=== PATIENT | female | born 1980 | race Caucasian/White ===

== ENCOUNTER 2017-11-14 09:45 | Observation (INO) ==
[2017-11-14] MEDS ORDERED: Nitroglycerin 0.4 MG TAB.SUBL SL PRN (10:40)
[2017-11-14] MEDS ORDERED: Aspirin 81 MG TAB.CHEW PO STA (10:40)
--- NOTE | 2017-11-14 10:45 | Emergency Department Note ---
Disposition Clinical Impression: Chest pain Qualifiers: Chest pain type: unspecified Qualified Code(s): R07.9 - Chest pain, unspecified Disposition: Admitted As Inpatient Condition: Good Referrals: Justina Moreno CNP [Primary Care Provider] - Forms: ED Satisfaction Letter Time of Disposition: 12:00 Chest Pain HPI - General Chief Complaint: ED Chest Pain Stated Complaint: chest pain Time Seen by Provider: 11/14/17 09:59 Source: patient Limitations: no limitations Vital Signs Reviewed: Yes Nursing Notes Reviewed: Yes - History of Present Illness HPI Narrative: 36-year-old female history of hypertension and pack per day smoker presents with chest pain. This started around 1500 yesterday while at work. She denies any exertion associated. Describes as a chest pressure in the left chest wall with radiation down the left arm. She denies any diaphoresis, shortness of breath or nausea or vomiting. Every 30 minutes to an hour she feels associated sharp pain. 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 States this is similar to before. She continues to have some chest pressure at this time. Mother is in the room and denies history of cardiac history. She denies any other complaints such as recent illness, fever, cough, abdominal pain. She denies any unilateral swelling, history of blood clots, cancer, hormone use, long-distance travel or hospitalization. Will get a chest pain workup with the D dimer. Aspirin and nitro for the pain. She will likely require admission for further evaluation. Pt complaint: chest pain Severity scale (1-10): 5 - Related Data Home Medications Medication Instructions Recorded Confirmed Cetirizine HCl [Zyrtec] 10 mg PO DAILY 02/22/16 06/15/17 Furosemide [Lasix] 40 mg PO 1-3XD PRN 02/22/16 06/15/17 LORazepam [Ativan] 0.5 mg PO PRN PRN 02/22/16 06/15/17 Metoprolol [Lopressor] 25 mg PO BID 02/22/16 06/15/17 Omeprazole [PriLOSEC] 40 mg PO DAILY 02/22/16 06/15/17 Potassium 99 mg PO DAILY 02/22/16 06/15/17 Gabapentin [Neurontin] 300 mg PO TID 11/19/16 06/15/17 Previous Rx's Medication Instructions Recorded Diphenoxylate/Atropine [Lomotil 1 each PO TID #15 tablet 09/28/17 2.5 mg/0.025 mg] Ondansetron HCl [Zofran] 4 mg PO TID #15 tablet 09/28/17 Allergies Allergy/AdvReac Type Severity Reaction Status Date / Time codeine Allergy Rash Verified 02/24/17 12:10 tramadol [From Ultra] Allergy Itching Verified 01/27/17 17:28 "one of the antibiotics" Allergy Vomiting Uncoded 11/14/17 09:49 All systems ED: reviewed and negative except as stated. Review of Systems: As Per HPI Constitutional: Denies: fever, chills ENT ED: Denies: congestion, dysphagia Cardiovascular: Reports: chest pain. Denies: dyspnea on exertion Respiratory: Denies: cough, dyspnea Gastrointestinal: Denies: abdominal pain, nausea, vomiting Genitourinary: Denies: urgency, dysuria Musculoskeletal: Denies: back pain, neck pain Integumentary: Denies: rash, abrasion, lesions Neurological: Denies: headache Psychiatric: Reports: anxiety. 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 - Social History Smoking Status: Current every day smoker Alcohol use: Reports: occasionally Drug use: Reports: none Physical Exam - General Limitations: no limitations General appearance: alert, in no apparent distress - Head Head exam: atraumatic, normocephalic, normal inspection - Eye Eye exam: Present: normal appearance, PERRL, EOMI - ENT ENT exam: normal exam, normal oropharynx, mucous membranes moist - Neck Neck exam: Present: normal inspection, full ROM, trachea midline - Chest Chest inspection: Present: normal inspection, symmetric chest wall rise, tenderness (Left chest) - Respiratory Respiratory exam: Present: normal lung sounds bilaterally. Absent: respiratory distress, wheezes - Cardiovascular Cardiovascular exam: Present: regular rate, normal rhythm, normal heart sounds - Abdominal Exam Abdominal exam: Present: soft, Non-Tender, normal bowel sounds. Absent: tenderness, distention, guarding, rebound, rigidity - Extremities Exam Extremities exam: Present: normal inspection, full ROM, normal capillary refill. Absent: tenderness, pedal edema, calf tenderness - Back Exam Back exam: Present: normal inspection, full ROM. Absent: tenderness - Neurological Exam Neurological exam: Present: alert, oriented X3 - Psychiatric Psychiatric exam: Present: normal affect, normal mood - Skin Skin exam: Present: warm, dry, intact, normal color. Absent: rash, cyanosis, diaphoresis Course Course Narrative: 36-year-old female obese, pack per day smoker, hypertension presents with chest pain. Ongoing over the last 24 hours. History of same. No prior cardiac workup. No family history of cardiac ischemia. EKG shows old T waves inversion that appears unchanged from prior. On exam she has tenderness to the left chest wall. Currently describes a pressure of 510. Chest pain workup initiated with D dimer. HEART score is 4 pending troponin result. Will likely require admission. Trial of nitro at this time. Aspirin given here. - Reevaluation(s) Reevaluation #1: Pain resolved after one nitro. Troponin 0.01. All other lab values unremarkable. EKG did show T wave inversions are old. D dimer was 200. She does not require CTA of the chess to evaluate for pulmonary embolism at this time. Patient will be admitted for further cardiac evaluation. She is in agreement with this plan. Impression is chest pain rule out acute coronary syndrome. Aspirin has been given. Time: 11:01 - Consultations Consultation #1: Spoke with on-call hospitalist farrukh Arreola to admit for chest pain R/O ACS. No further orders at this time Time: 11:59 Vital Signs Temperature 98.4 F 11/14/17 09:46 Pulse Rate 73 11/14/17 09:46 Respiratory Rate 18 11/14/17 09:46 Blood Pressure 147/97 11/14/17 09:46 O2 Sat by Pulse Oximetry 99 11/14/17 09:46 Temperature 98.4 F 11/14/17 09:46 Pulse Rate 87 11/14/17 10:58 Respiratory Rate 18 11/14/17 10:58 Blood Pressure 133/87 11/14/17 10:58 O2 Sat by Pulse Oximetry 96 11/14/17 10:58 Oxygen Delivery Oxygen Delivery Room Air Chest Pain - MDM Narrative Medical decision making narrative: Patient was discussed with my attending physician who agrees with ED management and final disposition. They independently evaluated the patient. Please refer to their attestation to this encounter for additional information. This note was generated by [employer] voice recognition software and as a result grammatical or spelling errors may occur using this program. - Medical Records Medical records reviewed: Yes I reviewed the patient's medical records. - Lab Data Lab results reviewed: Yes I reviewed the patient's lab results. Result diagrams: 11/14/17 10:40 11/14/17 10:40 Lab Results 11/14/17 11/14/17 11/14/17 Range/Units 10:40 10:40 10:40 WBC 9.9 (4.3-11.1) K/mcL RBC 4.58 (3.82-4.97) M/mcL Hgb 13.9 (11.5-15.4) g/dL Hct 41.7 (35.3-44.9) % MCV 91.0 (83.0-100.0) fL MCH 30.3 (28.0-33.3) pg MCHC 33.3 (31.6-35.5) g/dL RDW 12.6 (11.5-14.5) % Plt Count 255 (140-400) K/mcL MPV 9.3 L (9.4-12.4) fL Immature Gran % 0.4 (0-4) % Seg Neutrophils % 48.1 % Lymphocytes % 41.7 % Monocytes % 7.7 % Eosinophils % 1.5 % Basophils % 0.6 % Neutrophils # 4.7 (1.6-8.9) K/mcL Lymphocytes # 4.1 (0.6-4.6) K/mcL Monocytes # 0.8 (0.0-1.3) K/mcL Eosinophils # 0.2 (0.0-0.6) K/mcL Basophils # 0.1 (0.0-0.2) K/mcL D-Dimer (0-500) ng/mLFEU Sodium 138 (136-145) mEq/L Potassium 4.2 (3.5-4.5) mEq/L Chloride 106 (98-109) mEq/L Carbon Dioxide 24 (19-29) mEq/L BUN 12 (7-20) mg/dL Creatinine 0.75 (0.57-1.11) mg/dL Est GFR ( Amer) > 60 (> 60) Est GFR (Non-Af Amer) > 60 (> 60) BUN/Creatinine Ratio 16 (6-26) Glucose 87 (70-99) mg/dL Calculated Osmolality 285 (280-300) Calcium 9.6 (8.6-10.8) mg/dL Troponin I 0.01 (0-0.03) ng/mL 11/14/17 Range/Units 10:40 WBC (4.3-11.1) K/mcL RBC (3.82-4.97) M/mcL Hgb (11.5-15.4) g/dL Hct (35.3-44.9) % MCV (83.0-100.0) fL MCH (28.0-33.3) pg MCHC (31.6-35.5) g/dL RDW (11.5-14.5) % Plt Count (140-400) K/mcL MPV (9.4-12.4) fL Immature Gran % (0-4) % Seg Neutrophils % % Lymphocytes % % Monocytes % % Eosinophils % % Basophils % % Neutrophils # (1.6-8.9) K/mcL Lymphocytes # (0.6-4.6) K/mcL Monocytes # (0.0-1.3) K/mcL Eosinophils # (0.0-0.6) K/mcL Basophils # (0.0-0.2) K/mcL D-Dimer 234 (0-500) ng/mLFEU Sodium (136-145) mEq/L Potassium (3.5-4.5) mEq/L Chloride (98-109) mEq/L Carbon Dioxide (19-29) mEq/L BUN (7-20) mg/dL Creatinine (0.57-1.11) mg/dL Est GFR ( Amer) (> 60) Est GFR (Non-Af Amer) (> 60) BUN/Creatinine Ratio (6-26) Glucose (70-99) mg/dL Calculated Osmolality (280-300) Calcium (8.6-10.8) mg/dL Troponin I (0-0.03) ng/mL - Radiology Data Radiology results reviewed: Yes I reviewed the patient's radiology results. Chest X-Ray 11/14/17 10:12 IMPRESSION: No acute cardiopulmonary abnormality. D/ / Diallo Carmen MD / Diallo Carmen MD Interpreting Provider: Diallo Carmen MD - EKG Data EKG attestation: Yes I reviewed and interpreted this EKG. EKG results narrative: EKG performed 956 normal sinus rhythm 80 bpm, normal axis, incomplete right bundle branch block, T wave inversions are seen in septal leads V1-V3 that are consistent from a prior EKG performed 06/15/2017 and appear unchanged. No ST elevation. Intervals are within normal limits. No acute ischemic changes. Heart Score - Score History: Moderately Suspicious EKG: Non Specific repolarisation Disturbance Age: Less than 45 Risk Factors: Equal/Greater than 3 risk factor or history of atherosclerotic disease Troponin: Less than normal limit HEART Score Total: 4 Attestation Statement - Attestation Attestation: Patient was seen with resident physician. I reviewed the history, physical, assessment and plan, and agree with the findings. I also personally evaluated this patient and had [id number] time with this patient. 36-year-old female presents to emergency department chief complaint of chest pain. Patient states that she has had intermittent chest pain for some time. She was supposed to have had a stress test while ago, but never followed up to get the test done. She does have a strong family history. She is smoker. She also has hypertension. She says her current pain is 5 out of 10 at been somewhat continuous and a pressure sensation for 2 days radiates to left shoulder. She also gets sharp stabbing sensations on occasion she does not have those at this time. On exam vital signs are stable. ENT is unremarkable. Heart regular rhythm and rate. Lungs clear. Abdomen soft nontender. Extremities no swelling or abnormalities noted. Neurologically intact. ED course nitroglycerin resolved the patient's pain. EKG did not show any acute ischemic changes as compared to prior EKG. Lab workup was done. Because of the patient' s comorbidities and risk factors will admit the patient to the hospital service for chest pain and rule out WA. Hemodynamically she remained stable in the ED. Agree with resident physician assessment and plan.
[2017-11-14 10:50] LABS: Basophils # 0.1 K/mcL (0.0-0.2); Basophils % 0.6 %; Eosinophils # 0.2 K/mcL (0.0-0.6); Eosinophils % 1.5 %; Hematocrit 41.7 % (35.3-44.9); Hemoglobin 13.9 g/dL (11.5-15.4); Immature Granulocytes % 0.4 % (0-4); Lymphocytes # 4.1 K/mcL (0.6-4.6); Lymphocytes % 41.7 %; Mean Corpuscular HGB Conc 33.3 g/dL (31.6-35.5); Mean Corpuscular Hemoglobin 30.3 pg (28.0-33.3); Mean Platelet Volume 9.3 fL (9.4-12.4); Monocytes # 0.8 K/mcL (0.0-1.3); Monocytes % 7.7 %; Neutrophils # 4.7 K/mcL (1.6-8.9); Platelet Count 255 K/mcL (140-400); Red Blood Count 4.58 M/mcL (3.82-4.97); Red Cell Distribution Width 12.6 % (11.5-14.5); Segmented Neutrophils % 48.1 %
[2017-11-14 11:00] LABS: Blood Urea Nitrogen 12 mg/dL (7-20); Calcium 9.6 mg/dL (8.6-10.8); Chloride 106 mEq/L (98-109); Glucose 87 mg/dL (70-99); Osmolality,Calculated 285 (280-300); Potassium 4.2 mEq/L (3.5-4.5); Sodium 138 mEq/L (136-145)
[2017-11-14 11:11] LABS: BUN/Creatinine Ratio 16 (6-26); Carbon Dioxide 24 mEq/L (19-29); eGFR For African Americans > 60 (> 60); eGFR For Non-African Americans > 60 (> 60)
[2017-11-14] MEDS ORDERED: Naloxone 0.4 MG/ML INJ IVP PRN (13:27)
[2017-11-14] MEDS ORDERED: Ondansetron 4 MG/2 ML VIAL IVP PRN (13:27)
--- NOTE | 2017-11-14 13:32 | Internal Med History&Physical ---
<Remy Johnson J - Last Filed: 11/14/17 13:30> Date of Encounter: 11/14/17 Time of Encounter: 13:30 Assessment and Plan (1) ACS (acute coronary syndrome) Current visit: Yes Status: Acute Presented today with left-sided chest pain and radiation to left shoulder. Approximately 3 PM yesterday. No prior history of SD. Cardiac workup. Patient reports similar presentation off and on throughout the last year. No one time was scheduled to have a stress test but did not show to her prior obligations. Prior EKG reveals anterior ischemia with ST depression in V2 and V3. Today's EKG reveals the same thing without any changes. Risk factors include hypertension, a half a pack daily smoker, obesity. PER auscultation heart is RRR, S1, S2 she appears to be in no distress and is hemodynamically stable Obtain TTE Serial troponins Stress test in the morning Consult cardio pending stress results HEENT intermittent night, no caffeine, no nicotine morning dose of beta kimberlyn Continuous telemetry, continuous SPO2 monitoring (2) HTN (hypertension) Current visit: Yes Status: Acute History of hypertension. Currently stable. Restart beta kimberlyn. Continue to monitor Qualifiers: Hypertension type: essential hypertension Qualified Code(s): I10 - Essential (primary) hypertension (3) DVT prophylaxis Current visit: Yes Status: Acute Heparin 5000 units subcutaneous twice a day Internal Medicine - H&P: HPI Chief complaint: ACS rule out Admitted From: Home Plans for Post Hospital Care: Home History of present illness: Ms. Hernandez is a 36 year old female with PMH of hypertension. Presents today with left-sided chest pain radiation to the left shoulder described as pressure with intermittent shooting/stabbing which began yesterday at 3 PM. She reports the sensation lasted approximately 10 minutes. Denies any chest pain at this time, denies any fever, chills, shortness of breath, diaphoresis, admits to some intermittent nausea associated with chest pain.EKG from May [address] depression in V2 and V3. She reports that sometime in the last year she was scheduled to have a stress test after experiencing similar symptoms. However at that time she decided to not complete the stress test due to prior obligations. Today's EKG reveals ST depression in V2 and V3 concerning for anterior ischemia. Workup thus far unremarkable. Due to continued symptoms and prior history is being admitted for further workup and evaluation Past Med Surg Social Fam HX - Past Medical History Medical history: fibromyalgia, hypertension Psychiatric history: anxiety, depression - Past Surgical History Surgical History: cholecystectomy, hysterectomy, other (Tonsillectomy) - Social History Smoking Status: Current every day smoker Packs per day: 1/2 Smokeless Tobacco Status: No Alcohol use: occasionally Drug use: none - Family History Father Hx Family Cardiac Disorders: Yes (Coronary artery disease) Internal Medicine - H&P: Meds Cetirizine HCl [Zyrtec] 10 mg PO DAILY 02/22/16 [History] LORazepam [Ativan] 0.5 mg PO DAILY PRN 02/22/16 [History] Metoprolol [Lopressor] 25 mg PO BID 02/22/16 [History] Omeprazole [PriLOSEC] 40 mg PO DAILY 02/22/16 [History] Albuterol Sulfate [Ventolin Hfa] 2 puff IH Q4-6H PRN 11/14/17 [History] Amitriptyline [Elavil] 50 mg PO HS 11/14/17 [History] Buspirone HCl [Buspar] 5 mg PO BID 11/14/17 [History] DULoxetine [Cymbalta] 30 mg PO BID 11/14/17 [History] Fluticasone Propionate Nasal [Flonase] 1 spr NS DAILY 11/14/17 [History] Furosemide [Lasix] 20 mg PO DAILY 11/14/17 [History] Ibuprofen [Ibuprofen] 800 mg PO TID PRN 11/14/17 [History] Potassium Chloride [Klor-Con Sprinkle] 10 meq PO DAILY 11/14/17 [History] Sertraline [Zoloft] 25 mg PO DAILY 11/14/17 [History] 3 Allergy/AdvReac Type Severity Reaction Status Date / Time codeine Allergy Rash Verified 11/14/17 12:04 tramadol [From Ultram] Allergy Itching Verified 11/14/17 12:04 "one of the antibiotics" Allergy Vomiting Uncoded 11/14/17 09:49 All Systems PM: A 10-system review of systems was performed and is negative for pertinent findings except as documented above in the HPI. - Constitutional Constitutional: no chills, no fever(s), no night sweats - EENT Eyes: no change in vision, no discharge, no pain, no photophobia Ears: no ear discharge, no ear pain, no tinnitus Nose, mouth and throat: no dysphagia, no nasal discharge, no neck pain, no sore throat - Cardiovascular Cardiovascular ROS IM: as per HPI, chest pain, no diaphoresis, no dyspnea, no edema, no irregular heart rhythm, no lightheadedness, no palpitations, no paroxysmal nocturnal dyspnea, no syncope - Respiratory Respiratory: no cough, no dyspnea, no wheezing, no excessive phlegm production - Gastrointestinal Gastrointestinal: nausea (Intermittent associated with chest pain.), no abdominal pain, no diarrhea, no hematemesis, no hematochezia, no melena, no vomiting - Genitourinary Genitourinary: no change in urinary stream, no dysuria, no flank pain, no hematuria - Musculoskeletal Musculoskeletal ROS IM: no numbness, no tingling - Integumentary Integumentary IM: no rash, no unusual bruising - Neurological Neurological ROS: no confusion, no convulsions, no focal weakness, no numbness, no tingling, no tremor(s) - Hematologic/Lymphatic Hematologic/Lymphatic: no easy bruising - Constitutional Vitals: Temp Pulse Resp BP Pulse Ox 97.9 F 72 16 133/89 98 11/14/17 13:01 11/14/17 13:01 11/14/17 13:01 11/14/17 13:01 11/14/17 13:01 General appearance: Present: cooperative, A&O X 3, no acute distress, answers questions appropriately - Head Head exam: Present: atraumatic, normocephalic - Eye Eye exam: Present: PERRL, conjuntiva pink, sclera anicteric Pupils: Present: PERRL - Neck Neck exam general surgery: Present: supple, trachea midline. Absent: lymphadenopathy - Respiratory Respiratory exam: Present: CTAB. Absent: accessory muscle use, rales, rhonchi, wheezes - Cardiovascular Cardiovascular exam: Present: RRR, +S1, +S2. Absent: diastolic murmur, gallop, rubs, systolic murmur - GI/Abdominal GI/Abdominal exam: Present: normal bowel sounds, soft, no peritoneal signs. Absent: distended, tenderness - Extremities Exam Extremities exam: Present: warm, radial pulses palpable and symmetrical. Absent : calf tenderness, cyanotic, pedal edema - Neurological Exam Neurological exam: Present: CN II-XII intact, oriented X3, no focal deficits. Absent: pronater drift, facial droop, speech deficit - Skin Skin exam: Present: dry, intact Internal Med - H&P Results - Labs CBC & Chem 7: 11/14/17 10:40 11/14/17 10:40 - EKG Data -: EKG Interpreted by Myself EKG shows normal: sinus rhythm Rate: normal - EKG Data Prior EKG available for review: yes When compared to previous EKG: there is no significant change Interpretation IM: suggestive of ischemia EKG comments: 11/14/17 13:[address] depression in V2 and V3 concerning for anterior ischemia. Has not changed from prior EKG in 05/2017 <Benoit Kidd - Last Filed: 11/14/17 18:15> Date of Encounter: 11/14/17 Internal Medicine - H&P: HPI History of present illness: Ms. Hernandez is a 36 year old female All Systems PM: A 10-system review of systems was performed and is negative for pertinent findings except as documented above in the HPI. - Constitutional Vitals: Temp Pulse Resp BP Pulse Ox 97.9 F 72 16 133/89 98 11/14/17 13:01 11/14/17 13:01 11/14/17 13:01 11/14/17 13:01 11/14/17 13:01 Internal Med - H&P Results - Labs CBC & Chem 7: 11/14/17 10:40 11/14/17 10:40 - Attending Attestation I examined this patient and my medical decision-making was reviewed with the Resident Physician. I agree with the documented findings, disposition and treatment plan as described except to the extent set forth below.
[2017-11-14] MEDS: *HR* LORazepam 0.5 MG TABLET PO PRN (15:13)
[2017-11-14] MEDS: *HR* Heparin 5,000 UNIT/ML VIAL SQ SCH (17:44)
[2017-11-14] MEDS: Ibuprofen 800 MG TABLET PO PRN (17:59)
[2017-11-15] MEDS: *HR* Heparin 5,000 UNIT/ML VIAL SQ SCH (05:10)
[2017-11-15 07:02] LABS: Basophils # 0.1 K/mcL (0.0-0.2); Basophils % 0.9 %; Eosinophils # 0.2 K/mcL (0.0-0.6); Eosinophils % 1.9 %; Hematocrit 45.6 % (35.3-44.9); Immature Granulocytes % 0.7 % (0-4); Lymphocytes # 3.8 K/mcL (0.6-4.6); Lymphocytes % 42.2 %; Mean Corpuscular HGB Conc 32.9 g/dL (31.6-35.5); Mean Corpuscular Hemoglobin 30.2 pg (28.0-33.3); Mean Corpuscular Volume 91.9 fL (83.0-100.0); Mean Platelet Volume 9.4 fL (9.4-12.4); Monocytes # 0.7 K/mcL (0.0-1.3); Neutrophils # 4.2 K/mcL (1.6-8.9); Platelet Count 261 K/mcL (140-400); Red Blood Count 4.96 M/mcL (3.82-4.97); Red Cell Distribution Width 12.7 % (11.5-14.5); Segmented Neutrophils % 46.3 %
[2017-11-15 07:14] LABS: BUN/Creatinine Ratio 14 (6-26); Blood Urea Nitrogen 11 mg/dL (7-20); Calcium 9.3 mg/dL (8.6-10.8); Carbon Dioxide 27 mEq/L (19-29); Chloride 108 mEq/L (98-109); Glucose 102 mg/dL (70-99); Osmolality,Calculated 292 (280-300); Potassium 4.6 mEq/L (3.5-4.5); Sodium 141 mEq/L (136-145); eGFR For African Americans > 60 (> 60); eGFR For Non-African Americans > 60 (> 60)
[2017-11-15 07:17] LABS: Chol/HDL Ratio 9.6 (0-4.9)
[2017-11-15] MEDS ORDERED: Fluticasone Propionate Nasal 50 MCG/SPRAY BOTTLE NS SCH (09:00)
[2017-11-15] MEDS ORDERED: Loratadine 10 MG TABLET PO SCH (09:00)
[2017-11-15] MEDS ORDERED: Furosemide 20 MG TABLET PO SCH (09:00)
[2017-11-15] MEDS: *HR* LORazepam 0.5 MG TABLET PO PRN (09:48)
--- NOTE | 2017-11-15 13:06 | Discharge Summary ---
Date of Encounter: 11/15/17 Time of Encounter: 13:04 - Discharge Diagnosis (1) Chest pain Priority: Primary Status: Resolved Comments: Patient with chest pain occurred while working. Improved with nitroglycerin, ASA. Serial troponins negative. EKG without acute ST changes. TTE with EF 60% , mild diastolic dysfunction, no wall motion abnormalities. Stress test nondiagnostic for ischemia due to baseline ST changes on EKG. Patient declined further inpatient testing, preferred to follow up outpatient with PCP and cardiology. Chest pain possibly secondary to exertion and musculoskeletal in etiology; patient reports working 2 jobs and over 80 hours a week. No chest pain at time of discharge. Has follow-up with PCP 11/16/17. Advised to return to ER if chest pain, SOB recurs. Qualifiers: Chest pain type: unspecified Qualified Code(s): R07.9 - Chest pain, unspecified (2) Hyperlipidemia Priority: Primary Status: Acute Comments: LDL 146; statin initiated. Lifestyle modifications encouraged. Can repeat lipid profile with PCP. Qualifiers: Hyperlipidemia type: pure hypercholesterolemia Qualified Code(s): E78.00 - Pure hypercholesterolemia, unspecified; E78.0 - Pure hypercholesterolemia (3) HTN (hypertension) Priority: Primary Status: Acute Comments: per hx. . BP controlled. Continue home BP medication Qualifiers: Hypertension type: essential hypertension Qualified Code(s): I10 - Essential (primary) hypertension - Discharge Medications Prescriptions: Atorvastatin [Lipitor] 40 mg PO HS #30 tablet Home Medications: Cetirizine HCl [Zyrtec] 10 mg PO DAILY 02/22/16 [History] LORazepam [Ativan] 0.5 mg PO DAILY PRN 02/22/16 [History] Metoprolol [Lopressor] 25 mg PO BID 02/22/16 [History] Omeprazole [PriLOSEC] 40 mg PO DAILY 02/22/16 [History] Albuterol Sulfate [Ventolin Hfa] 2 puff IH Q4-6H PRN 11/14/17 [History] Amitriptyline [Elavil] 50 mg PO HS 11/14/17 [History] Buspirone HCl [Buspar] 5 mg PO BID 11/14/17 [History] DULoxetine [Cymbalta] 30 mg PO BID 11/14/17 [History] Fluticasone Propionate Nasal [Flonase] 1 spr NS DAILY 11/14/17 [History] Furosemide [Lasix] 20 mg PO DAILY 11/14/17 [History] Ibuprofen 800 mg PO TID PRN 11/14/17 [History] Potassium Chloride [Klor-Con Sprinkle] 10 meq PO DAILY 11/14/17 [History] Sertraline [Zoloft] 25 mg PO DAILY 11/14/17 [History] Atorvastatin [Lipitor] 40 mg PO HS #30 tablet 11/15/17 [Rx] Allergies/Adverse Reactions: 3 Allergy/AdvReac Type Severity Reaction Status Date / Time codeine Allergy Rash Verified 11/14/17 12:04 tramadol [From Ultram] Allergy Itching Verified 11/14/17 12:04 "one of the antibiotics" Allergy Vomiting Uncoded 11/14/17 09:49 Procedures/tests Complete & Pending: Procedures Performed prior 72 hours Category Date Time Status EV echocardiogram Routine Y 11/15/17 13:23 Completed SP exercise stress ECG Routine Y 11/15/17 Completed Date of admission: 11/14/17 12:12 Primary care physician: Justina Moreno CNP Discharging clinician: Shy Pugh Anticipated date of discharge: 11/15/17 - Patient Status Disposition: Home, Self-Care Condition: Good Functional capacity at discharge: independent ambulation Overall status at discharge: patient is back to baseline - Discharge Instructions Instructions: Atorvastatin (By mouth), How to Stop Smoking (DC), Hyperlipidemia (DC) Follow Up With: Justina Moreno CNP [Primary Care Provider] - 11/16/17 12:30 pm Additional Instructions: Follow-up appointments: If there is not an appointment listed below, please call your physician and schedule a follow-up appointment. If you have congestive heart failure and your symptoms return, make an appointment with your physician. Medication List: Carry an up to date list of medications you are taking at all time. We have given you an updated medication list including any new medications that you have been prescribed. Please provide that list to your primary provider Symptoms: If your condition changes or you experience any of the following symptoms, notify your physician immediately: Unusual or worsening pain, fever, persistent nausea and vomiting, bleeding, increase in swelling (especially in your legs), sudden weight gain, extreme dizziness, chest pain, increased drainage or redness from a wound or incision. Go to the emergency department if you experience a problem with breathing. Weights: If you have a history of swelling or shortness of breath, weigh yourself daily and notify your physician if you have a weight gain of two or more pounds in one day or 5 or more pounds in a week. If you experience any of the warning signs for stroke: Sudden numbness or weakness of the face, arm or leg; especially on one side of the body, sudden confusion, trouble speaking or understanding, sudden trouble seeing in one or both eyes, sudden trouble walking, dizziness, loss of balance or coordination, sudden sever headache with no cause; Call 911 or go to the emergency room. Stroke is a medical emergency. Some risk factors for stroke: Age, cigarette smoking, diabetes, excessive alcohol consumption, family history , high blood pressure, overweight, physical inactivity, prior stroke, heart attack, diagnosis of carotid artery stenosis or other artery disease. If you smoke, STOP: Smoking or tobacco use significantly increases your risk of heart and lung disease. Your chance of disease greatly increases if you continue to smoke. For more information, call the [employer] tobacco quit line for smoking cessation QUIT-NOW ( ) - Diet and Activity Activity: increase activity as tolerated, resume usual activities as tolerated Diet: advance to your usual diet, low fat, low cholesterol Interval History: Seen and examined at bedside. Patient is new to me, information obtained from chart review and patient report. Denies chest pain or shortness of breath at time of my exam. Says chest pain was relieved in rounds with nitroglycerin and aspirin. No known heart disease. She is a current smoker, cessation advised. Also advised on weight loss and lifestyle/dietary changes. Anticipate discharge home if stress test negative. Hospital course: See assessment and plan for hospital course - Time Spent with Patient Total time spent providing and/or coordinating discharge services: - Constitutional Vitals: Temp Pulse Resp BP Pulse Ox 98 F 80 15 112/69 93 11/15/17 11:58 11/15/17 11:58 11/15/17 11:58 11/15/17 11:58 11/15/17 11:58 General appearance: Present: cooperative, A&O X 3, morbidly obese, no acute distress, answers questions appropriately - Head Head exam: Present: atraumatic, normocephalic - Eye Eye exam: Present: PERRL, conjuntiva pink, sclera anicteric Pupils: Present: PERRL - Neck Neck exam general surgery: Present: supple, trachea midline. Absent: lymphadenopathy - Respiratory Respiratory exam: Present: CTAB. Absent: accessory muscle use, rales, rhonchi, wheezes - Cardiovascular Cardiovascular exam: Present: RRR, +S1, +S2. Absent: diastolic murmur, gallop, rubs, systolic murmur - GI/Abdominal GI/Abdominal exam: Present: normal bowel sounds, soft, no peritoneal signs. Absent: distended, tenderness - Extremities Exam Extremities exam: Present: warm, radial pulses palpable and symmetrical. Absent : calf tenderness, cyanotic, pedal edema - Neurological Exam Neurological exam: Present: CN II-XII intact, oriented X3, no focal deficits. Absent: pronater drift, facial droop, speech deficit - Skin Skin exam: Present: dry, intact
[2017-11-15] MEDS: Ibuprofen 800 MG TABLET PO PRN (14:28)
[2017-11-15 15:33] VITALS: BP 110/72
--- NOTE | 2017-11-16 09:55 | Electrocardiograph Report ---
[place] [id number] Test Date: 2017-11-14 Pat Name: Rianna Hernandez Department: 103 Room: 3B66 Gender: F [employer]: RYNE : 1980 Requested By: Ricco Dill Order Number: [id number] Reading MD: Angel Luis Tao DO Measurements Intervals [place] Rate: 80 P: 11 MI: 148 QRS: 11 QRSD: 95 T: -9 QT: 374 QTc: 410 Interpretive Statements SINUS RHYTHM ST DEVIATION AND MODERATE T-WAVE ABNORMALITY, CONSIDER ANTERIOR ISCHEMIA Electronically Signed On 11-16-2017 9:53:46 EST by Angel Luis Tao DO
== END 2017-11-15 17:33 | disposition home or self-care (01) ==
LOC: EMEROO 09:45 → 3BNU 09:45
PROVIDERS: ADMIT Nurse Practitioner; ATTEND Registered Nurse

== ENCOUNTER 2020-04-19 21:56 | Observation (INO) ==
[2020-04-19] MEDS ORDERED: Naloxone 0.4 MG/ML INJ IVP PRN (23:14)
[2020-04-19] MEDS ORDERED: Ondansetron 4 MG/2 ML VIAL IVP PRN (23:14)
[2020-04-19] MEDS ORDERED: Acetaminophen 325 MG TABLET PO PRN (23:14)
[2020-04-19 23:34] VITALS: BP 152/94
[2020-04-20] MEDS ORDERED: *HR* LORazepam 0.5 MG TABLET PO PRN (01:02)
[2020-04-20 03:14] LABS: Hematocrit 42.3 % (35.3-44.9); Hemoglobin 14.3 g/dL (11.5-15.4); Mean Corpuscular HGB Conc 33.8 g/dL (31.6-35.5); Mean Corpuscular Hemoglobin 31.2 pg (28.0-33.3); Mean Corpuscular Volume 92.2 fL (83.0-100.0); Mean Platelet Volume 9.7 fL (9.4-12.4); Platelet Count 283 K/mcL (140-400); Red Blood Count 4.59 M/mcL (3.82-4.97); Red Cell Distribution Width 12.3 % (11.5-14.5); White Blood Count 12.3 K/mcL (4.3-11.1)
[2020-04-20 03:15] LABS: INR 1.1; Prothrombin Time 12.3 Seconds (9.4-12.1)
[2020-04-20 03:31] LABS: BUN/Creatinine Ratio 11 (6-26); Blood Urea Nitrogen 9 mg/dL (6-20); Calcium 9.4 mg/dL (8.6-10.3); Carbon Dioxide 24 mEq/L (23-29); Chloride 105 mEq/L (98-107); Cholesterol 188 mg/dL (< 200); Glucose 128 mg/dL (70-105); HDL Cholesterol 27 mg/dL (40-59); LDL Cholesterol,Calculated 133 mg/dL (0-99); Magnesium 2.3 mg/dL (1.6-2.6); Osmolality,Calculated 288 (280-300); Phosphorous 2.9 mg/dL (2.7-4.5); Potassium 2.8 mEq/L (3.5-5.1); Sodium 139 mEq/L (136-145); Triglycerides 142 mg/dL (< 150); eGFR For African Americans > 60 (> 60); eGFR For Non-African Americans > 60 (> 60)
[2020-04-20 03:44] LABS: Thyroid Stimulating Hormone 1.762 mcIU/mL (0.340-5.600)
[2020-04-20 07:35] LABS: Estimated Average Glucose 114 mg/dl
[2020-04-20] MEDS ORDERED: Aspirin Enteric Coated 81 MG Tablet PO SCH (09:00)
== END 2020-04-20 03:14 | disposition left against medical advice (07) ==
LOC: 1NENULAB → 3ANU
PROVIDERS: ADMIT Student in an Organized Health Care Education/Training Program; ATTEND Student in an Organized Health Care Education/Training Program